=== PATIENT | female | born 1975 | race Two or more races ===

== ENCOUNTER 2017-11-01 12:09 | Outpatient (CLI) | payer OTHER ==
[~2017-11-01 12:09] MED LIST: CATAFLAM50 MG; CLARITIN-D1 TAB.SR1 PO; DILTIAZEM 24HR120 MG; GABAPENTIN100 MG; GABAPENTIN600 MG PO; MEDROLPACK PO; NORFLEX100MG; TUSSI-PRES LIQ120 ML PO; TUSSIONEX PENNKI5 ML PO; VOLTAREN-XR100 MG PO; VOLTAREN100 GM TP; ZITHROMAX500 MG PO
== END 2017-11-01 12:17 | disposition home or self-care (01) ==
LOC: MAMO-SONO 12:09
DX: Z12.31 Encounter for screening mammogram for malignant neoplasm of breast (principal); Z87.898 Personal history of other specified conditions; M71.22 Synovial cyst of popliteal space [Baker], left knee; N62 Hypertrophy of breast

== ENCOUNTER 2018-02-16 14:36 | Emergency (ER) | payer OTHER ==
[~2018-02-16] VITALS: Ht 167.6 cm; Wt 83.9 kg
== END 2018-02-16 16:19 | disposition home or self-care (01) ==
LOC: ER 14:36
DX: M54.2 Cervicalgia (principal)

== ENCOUNTER 2018-04-30 18:59 | Emergency (ER) | payer OTHER ==
[~2018-04-30] VITALS: Ht 165.1 cm; Wt 74.8 kg
== END 2018-04-30 21:42 | disposition home or self-care (01) ==
LOC: ER 18:59
DX: L29.8 Other pruritus (principal); T46.1X5A Adverse effect of calcium-channel blockers, initial encounter; Y92.89 Other specified places as the place of occurrence of the external cause

== ENCOUNTER 2018-05-02 22:09 | Emergency (ER) | payer OTHER ==
[~2018-05-02] VITALS: Ht 170.2 cm; Wt 86.2 kg
[2018-05-03] MEDS ORDERED: NEURONTIN800 MG PO (04:11)
== END 2018-05-03 05:40 | disposition home or self-care (01) ==
LOC: ER 22:09
DX: G62.9 Polyneuropathy, unspecified (principal)

== ENCOUNTER 2018-06-15 13:19 | Outpatient (CLI) | payer OTHER ==
[~2018-06-15 13:19] MED LIST changes: +NEURONTIN800 MG PO
== END 2018-06-15 13:24 | disposition home or self-care (01) ==
LOC: MRI 13:19
DX: M46.47 Discitis, unspecified, lumbosacral region (principal); M12.88 Other specific arthropathies, not elsewhere classified, other specified site; M47.892 Other spondylosis, cervical region
CPT/HCPCS: 72141; 72148

== ENCOUNTER 2019-01-09 13:05 | Emergency (ER) | payer OTHER ==
[~2019-01-09] VITALS: Ht 167.6 cm; Wt 86.2 kg
[2019-01-09] MEDS ORDERED: GABAPENTIN400 MG (13:13)
[2019-01-09] MEDS ORDERED: VITAMIN D400 UNIT (13:13)
== END 2019-01-09 13:41 | disposition home or self-care (01) ==
LOC: ER 13:05
DX: M54.5 Low back pain (principal)

== ENCOUNTER 2019-02-10 14:56 | Emergency (ER) | payer OTHER ==
[~2019-02-10] VITALS: Ht 167.6 cm; Wt 88.0 kg
[~2019-02-10 14:56] MED LIST changes: +GABAPENTIN400 MG; +VITAMIN D400 UNIT
== END 2019-02-10 22:03 | disposition home or self-care (01) ==
LOC: ER 14:56
DX: M25.562 Pain in left knee (principal); M25.561 Pain in right knee; M79.661 Pain in right lower leg; M79.662 Pain in left lower leg

== ENCOUNTER 2019-02-14 10:41 | Outpatient (CLI) | payer OTHER | END 2019-02-14 12:10 | disposition home or self-care (01) | LOC: RAD 10:41 → MAMO-SONO 13:15 | DX: N63.11 Unspecified lump in the right breast, upper outer quadrant (principal); M19.90 Unspecified osteoarthritis, unspecified site ==

== ENCOUNTER → 2019-02-16 | Outpatient (CLI) | payer OTHER | END | disposition home or self-care (01) | LOC: MRI 02-15 14:07 | DX: M19.91 Primary osteoarthritis, unspecified site (principal) | CPT/HCPCS: 73721 ==

== ENCOUNTER → 2019-08-31 | Emergency (ER) | payer OTHER ==
[~2019-08-31] VITALS: Ht 170.2 cm; Wt 81.6 kg
[~2019-08-31] MED LIST changes: +BUTALBIT-ACETA1 EACH PO
== END | disposition home or self-care (01) ==
LOC: ER 21:05
DX: R51 Headache (principal)

== ENCOUNTER 2020-01-21 10:54 | Outpatient (CLI) | payer OTHER | END 2020-01-21 10:58 | disposition home or self-care (01) | LOC: SONOGRAMA 10:54 | PROVIDERS: ATTEND Internal Medicine Cardiovascular Disease | DX: M12.861 Other specific arthropathies, not elsewhere classified, right knee (principal) ==

== ENCOUNTER 2021-04-29 19:46 | Emergency (ER) | payer OTHER ==
[~2021-04-29] VITALS: Ht 167.6 cm; Wt 83.9 kg
[2021-04-29] MEDS ORDERED: NORFLEX100MG PO (21:49)
[2021-04-29] MEDS ORDERED: DICLOFENAC SODI75 MG PO (21:49)
== END 2021-04-29 22:42 | disposition home or self-care (01) ==
LOC: ER 19:46
DX: M54.2 Cervicalgia (principal)

== ENCOUNTER 2021-05-07 14:13 | Emergency (ER) | payer OTHER ==
[~2021-05-07] VITALS: Ht 167.6 cm; Wt 83.9 kg
[~2021-05-07 14:13] MED LIST changes: +DICLOFENAC SODI75 MG PO; +NORFLEX100MG PO
[2021-05-07] MEDS ORDERED: PEPCID AC20 MG PO (14:33)
[2021-05-07] MEDS ORDERED: SULINDAC200 MG PO (14:33)
[2021-05-07] MEDS ORDERED: CYCLOBENZAPRINE10 MG PO (17:16)
== END 2021-05-07 18:06 | disposition home or self-care (01) ==
LOC: ER 14:13
DX: G44.209 Tension-type headache, unspecified, not intractable (principal)

== ENCOUNTER 2021-11-02 23:30 | Emergency (ER) | payer OTHER ==
[~2021-11-02] VITALS: Ht 170.2 cm; Wt 83.9 kg
[~2021-11-02 23:30] MED LIST changes: +CYCLOBENZAPRINE10 MG PO; +PEPCID AC20 MG PO; +SULINDAC200 MG PO
[2021-11-02] MEDS ORDERED: LIPITOR20 MG (23:37)
== END 2021-11-03 03:54 | disposition home or self-care (01) ==
LOC: ER 23:30
DX: M62.830 Muscle spasm of back (principal)

== ENCOUNTER 2021-11-30 13:11 | Outpatient (CLI) | payer OTHER ==
[~2021-11-30 13:11] MED LIST changes: +LIPITOR20 MG
== END 2021-11-30 13:20 | disposition home or self-care (01) ==
LOC: NUCLEAR 13:11
PROVIDERS: ATTEND Specialist/Technologist, Other Nephrology
DX: N13.9 Obstructive and reflux uropathy, unspecified (principal); N19 Unspecified kidney failure
CPT/HCPCS: 78708; A9539

== ENCOUNTER 2021-12-22 13:49 | Outpatient (CLI) | payer OTHER | END 2021-12-22 13:56 | disposition home or self-care (01) | LOC: LAB 13:49 | PROVIDERS: ATTEND Urology | DX: I11.9 Hypertensive heart disease without heart failure (principal) ==

== ENCOUNTER 2022-10-07 15:59 | Emergency (ER) | payer OTHER ==
[~2022-10-07] VITALS: Ht 167.6 cm; Wt 86.2 kg
[2022-10-07] MEDS ORDERED: LOSARTAN POTASSI1 GM (16:09)
== END 2022-10-07 19:31 | disposition home or self-care (01) ==
LOC: ER 15:59
DX: M94.0 Chondrocostal junction syndrome [Tietze] (principal); I12.9 Hypertensive chronic kidney disease with stage 1 through stage 4 chronic kidney disease, or unspecified chronic kidney disease; N18.9 Chronic kidney disease, unspecified

== ENCOUNTER 2023-04-21 16:09 | Emergency (ER) | payer OTHER ==
[~2023-04-21] VITALS: Ht 170.2 cm; Wt 86.2 kg
[~2023-04-21 16:09] MED LIST changes: +LOSARTAN POTASSI1 GM
[2023-04-21] MEDS ORDERED: LOSARTAN POTAS100 MG PO (16:27)
[2023-04-21] MEDS ORDERED: ATORVASTATIN CA10 MG PO (16:27)
[2023-04-21] MEDS ORDERED: DILTIAZEM ER240 M2 PO (16:27)
[2023-04-21 17:51] LABS: HEMATOCRIT 42.1 % (36.0-45.00); HEMOGLOBIN 13.6 g/dL (12.0-15.00); MEAN CELL VOLUME 81.8 fL (80.00-100.00); MEAN CORPUSCULAR HEMOGLOBIN 26.5 pg (27.00-32.0); MEAN CORPUSCULAR HGB CONC 32.4 g/dl (32.0-36.0); PLATELET COUNT 220 K/uL (150-450); RED BLOOD COUNT 5.14 M/uL (4.00-6.00); RED CELL DISTRIBUTION WIDTH 14.4 % (11.5-14.5)
[2023-04-21 18:13] LABS: ALBUMIN 4.1 gm/dL (3.4-5.0); BILIRUBIN TOTAL 0.35 mg/dL (0.3-1.2); CALCIUM 9.5 mg/dL (8.5-10.1); CREATININE SERUM 1.05 mg/dL (0.55-1.02); GFR 55.7; GLOBULINA 4.1 G/DL (2.4-3.5); POTASSIUM 4.59 mEq/L (3.5-5.1); TOTAL PROTEIN 8.2 gm/dL (6.4-8.2)
== END 2023-04-21 20:55 | disposition home or self-care (01) ==
LOC: ER 16:09
PROVIDERS: General Practice
DX: R10.32 Left lower quadrant pain (principal)

== ENCOUNTER 2024-04-13 15:40 | Emergency (ER) | payer OTHER ==
[~2024-04-13] VITALS: Ht 170.2 cm; Wt 84.8 kg
[~2024-04-13 15:40] MED LIST changes: +ATORVASTATIN CA10 MG PO; +DILTIAZEM ER240 M2 PO; +LOSARTAN POTAS100 MG PO
[2024-04-13] MEDS ORDERED: CRESTOR40 MG (16:31)
[2024-04-13] MEDS ORDERED: CARDIZEM CD240 MG PO (16:31)
[2024-04-13] MEDS ORDERED: CEFTRIAXONE SODIUM 2,000 MG VIAL IM STA (16:49)
[2024-04-13] MEDS ORDERED: CEFTRIAXONE SODIUM 2,000 MG VIAL ONE (16:53)
== END 2024-04-13 19:01 | disposition home or self-care (01) ==
LOC: ER 15:41
DX: L03.90 Cellulitis, unspecified (principal)
CPT/HCPCS: 96372; 99282; J0696

== ENCOUNTER 2025-03-02 08:42 | Emergency (ER) | payer OTHER ==
[~2025-03-02] VITALS: Ht 170.2 cm; Wt 89.8 kg
[~2025-03-02 08:42] MED LIST changes: +CARDIZEM CD240 MG PO; +CRESTOR40 MG
[2025-03-02] MEDS ORDERED: CEFTRIAXONE SODIUM 1,000 MG VIAL IM ONE (10:00)
== END 2025-03-02 11:00 | disposition home or self-care (01) ==
LOC: ER 08:42
DX: H66.91 Otitis media, unspecified, right ear (principal); J03.80 Acute tonsillitis due to other specified organisms; E78.00 Pure hypercholesterolemia, unspecified; I10 Essential (primary) hypertension

== ENCOUNTER 2025-07-29 12:49 | Emergency (ER) | payer OTHER ==
[~2025-07-29] VITALS: Ht 170.2 cm; Wt 87.1 kg
[2025-07-29 13:39] VITALS: BP 133/84; O2SAT 97
[2025-07-29 20:22] LABS: BASO % 0.6 % (0.1-1.2); EOS # 0.36 (0.04-0.54); EOS % 5.3 % (0.7-7.0); LYMPH # 2.85 (1.18-3.74); LYMPH % 42.0 % (19.3-53.1); MEAN PLATELET VOLUME 9.80 fl (9.4-12.4); MONO # 0.40 (0.24-0.82); MONO % 5.9 % (4.7-12.5); NEUT # 3.12 (1.56-6.13); NEUT % 46.1 % (34.0-71.1); RED CELL DISTRIBUTION WIDTH 13.0 % (11.6-14.4)
[2025-07-29 21:09] LABS: ALT/SGPT 35.0 U/L (12-78); AST/SGOT 29.0 U/L (15-37); BILIRUBIN TOTAL 0.39 mg/dL (0.3-1.2); BUN CREA RATIO 14.0 (7.0-25.0); CREATININE SERUM 1.02 mg/dL (0.55-1.02); GFR 57.13; GLOBULINA 3.8 G/DL (2.4-3.5); GLUCOSE FASTING 125.0 mg/dL (65-100); OSMOLALITY SERUM 287.0 MOSM/KG (275-295)
[2025-07-30] MEDS ORDERED: MEDROLPACK PO (00:09)
== END 2025-07-30 00:21 | disposition home or self-care (01) ==
LOC: ER 12:50
DX: R59.0 Localized enlarged lymph nodes (principal); N88.8 Other specified noninflammatory disorders of cervix uteri; I10 Essential (primary) hypertension
CPT/HCPCS: 36415; 70491; 99283; Q9965